=== PATIENT | female | born 1965 | race Native Hawaiian/Other Pacific Islander ===

== ENCOUNTER 2018-03-30 13:24 | Emergency (ER) | payer MEDICARE, OTHER ==
[2018-03-30 13:41] VITALS: PULSE 61; RESP 18; TEMP 97.9
[2018-03-30] MEDS ORDERED: Sodium Chloride 0.9% 1,000 ML IV STA (14:53)
[2018-03-30 15:04] LABS: BASO # 0.1 K/uL (0.0-0.2); BASO % 2.3 % (0.0-2.0); EOS # 0.3 K/uL (0.0-0.7); EOS % 5.5 % (0.0-4.0); HEMOGLOBIN 12.5 g/dL (12.0-16.0); LYMPH # 1.4 K/uL (1.0-4.3); LYMPH % 22.5 % (20.0-40.0); MEAN CELL VOLUME 92.2 fl (81.0-99.0); MEAN CORPUSCULAR HGB CONC 32.5 g/dL (33.0-37.0); MEAN PLATELET VOLUME 8.7 fl (7.2-11.7); MONO # 0.3 K/uL (0.0-0.8); MONO % 5.3 % (0.0-10.0); NEUT # 3.9 K/uL (1.8-7.0); NEUT % 64.4 % (50.0-75.0); NRBC % 0.1 % (0.0-0.0); RBC 4.18 Mil/uL (3.80-5.20); RED CELL DISTRIBUTION WIDTH 13.3 % (11.5-14.5)
[2018-03-30 15:16] LABS: ALB/GLOB RATIO 1.3 (1.0-2.1); ALT/SGPT 48 U/L (9-52); AST/SGOT 41 U/L (14-36); BLOOD UREA NITROGEN 11 mg/dl (7-17); CALCIUM 8.8 mg/dL (8.4-10.2); GFR NON-AFRICAN AMERICAN > 60
--- NOTE | 2018-03-30 16:30 | US ---
Date of service: 03/30/2018 HISTORY: pelvic pain, vaginal bleeding COMPARISON: None available. TECHNIQUE: Transvaginal pelvic ultrasound was performed. FINDINGS: UTERUS: Measures 10.7 x 6.9 x 6.8 cm. Anteverted and enlarged. There are multiple fibroids, the largest posterior fundal fibroid measures 4.4 x 1.6 x 3.2 cm. ENDOMETRIUM: Measures 8.0 mm in diameter. Unremarkable. CERVIX: No cervical abnormality identified. RIGHT OVARY: Measures 2.4 x 1.8 x 2.0 cm. No solid mass. Normal flow. LEFT OVARY: Measures 1.6 x 1.1 x 1.6 cm. No solid mass. Normal flow. FREE FLUID: There is a small amount of free fluid in the cul de sac of uncertain etiology. OTHER FINDINGS: None. IMPRESSION: Enlarged fibroid uterus, the largest posterior fundal fibroid measures 4.4 x 1.6 x 3.2 cm. Small amount of free fluid in the cul de sac is of uncertain etiology
--- NOTE | 2018-03-30 17:42 | ED PDOC ---
HPI: Abdomen Time Seen by Provider: 03/30/18 13:47 Chief Complaint (Nursing): Abdominal Pain Chief Complaint (Provider): Suprapubic abdominal pain History Per: Patient History/Exam Limitations: no limitations Onset/Duration Of Symptoms: Days Outside of [place] travel?: No Additional Complaint(s): 52 yo female with HTN presents for evaluation of suprapubic pain. Pt states that she was seen in [facility] and told to follow-up with [facility]. Pt states she follow-up at urgent care today and was sent to ER for evaluation. Pt states she also did not have a menses for almost 1 year and than began having cycles of vaginal bleeding 3 months ago. Pt denies N/V/D. No dysuria. Previous CT reviewed. Fibroids with necrotic features Past Medical History Reviewed: Historical Data, Nursing Documentation, Vital Signs Vital Signs: Last Vital Signs Temp 97.9 F 03/30/18 13:35 Pulse 61 03/30/18 13:35 Resp 18 03/30/18 13:35 BP 178/87 H 03/30/18 13:35 Pulse Ox 97 03/30/18 13:35 - Medical History PMH: Anemia, HTN - Surgical History Surgical History: No Surg Hx - Family History Family History: States: No Known Family Hx - Living Arrangements Living Arrangements: With Family - Social History Current smoker - smoking cessation education provided: No Alcohol: None Drugs: Denies - Home Medications Home Medications: Ambulatory Orders Medication Instructions Recorded traMADol [Ultram] 50 mg PO Q6H PRN #15 tab 03/30/18 - Allergies Allergies/Adverse Reactions: Allergies Allergy/AdvReac Type Severity Reaction Status Date / Time No Known Allergies Allergy Verified 03/30/18 13:34 Review of Systems ROS Statement: Except As Marked, All Systems Reviewed And Found Negative Constitutional: Negative for: Fever, Chills - Laboratory Results Result Diagrams: 03/30/18 14:20 03/30/18 14:20 - ECG O2 Sat by Pulse Oximetry: 97 Medical Decision Making Medical Decision Making: Discussed CT and US with Dr. Russo. Follow-up out-patient for further work up and endometrial biopsy Disposition - Clinical Impression Clinical Impression: Vaginal bleeding, Fibroids - Patient ED Disposition Is Patient to be Admitted: No - Disposition Disposition: Routine/Home Disposition Time: 17:52 Condition: GOOD Prescriptions: traMADol [Ultram] 50 mg PO Q6H PRN #15 tab PRN Reason: Pain Instructions: Bleeding After Menopause
[2018-03-30 18:34] VITALS: BP 179/81; O2SAT 99
== END 2018-03-30 18:36 | disposition home or self-care (01) ==
LOC: H.ER 13:24
DX: N93.9 Abnormal uterine and vaginal bleeding, unspecified (principal); D25.9 Leiomyoma of uterus, unspecified; I10 Essential (primary) hypertension
CPT/HCPCS: 76830; 80053; 81025; 85025; 96360; 99284; J1885; J7030